=== PATIENT | male | born 1975 | race Caucasian/White ===

== ENCOUNTER 2022-08-06 13:43 | Emergency (ER) | payer OTHER ==
[~2022-08-06] VITALS: Ht 172.7 cm; Wt 83.9 kg
[2022-08-06 15:11] LABS: Source, Urine Clean Catch
[2022-08-06 15:46] LABS: Appearance, Urine Clear (Clear); Bilirubin, Urine Neg (Neg); Blood, Urine Neg (Neg); Glucose Qualitative, Urine Neg (Neg); Ketones, Urine Neg (Neg); Leukocyte Esterase, Urine Neg (Neg); Nitrite, Urine Neg (Neg); Protein, Urine Neg (Neg); Urobilinogen, Urine NORM (Normal)
[2022-08-06 15:47] LABS: Color, Urine Pale Yellow (P-Yellow)
== END 2022-08-06 16:19 | disposition home or self-care (01) ==
LOC: ER 13:43
PROVIDERS: Physician Assistant
DX: R35.0 Frequency of micturition (principal)
CPT/HCPCS: 81003; G0103